=== PATIENT | male | born 1950 | race Caucasian/White ===

== ENCOUNTER → 2019-06-14 | Outpatient (CLI) | payer MEDICARE, OTHER ==
--- NOTE | 2019-06-17 10:08 | PE ---
Nuclear medicine PET/CT HISTORY: Esophageal carcinoma, subsequent Patient received 11.6 mCi F-18 FDG intravenously in delayed scanning was performed from skull base to mid thighs. Localization and attenuation correction CT scan was performed. No comparisons Chest and neck: There is no cervical or supraclavicular adenopathy. No mediastinal, axillary, hilar a denopathy. There is a hiatal hernia present, partial intrathoracic stomach. Midthoracic esophageal le carolyn shows a focus of hypermetabolic uptake, SUV is 3.9, small focus of soft tissue present at this le carolyn posteriorly to the right of midline in the esophagus. There is no pleural effusion. No additional hypermetabolic uptake. No evident lung mass. ABDOMEN: Exophytic focus of soft tissue in the upper pole the left kidney measures 2.3 cm but does no t show simple cystic appearance. Questionable prominence of the right renal gland may be due to in pl ane imaging. Low dense focus present at both the lower pole the left and right kidney show photopenic and likely represent cysts. No evident liver mass, liver shows attenuation likely due to hepatic neel atosis, gallbladder is normal. No adenopathy. Diverticular changes associated:. No ascites. Prostate shows associated calcification, no pelvic adenopathy or free fluid. Osseous structures are showing no hypermetabolic uptake. Degenerative disc changes are noted, facet a rthropathy especially at the lower lumbar spine. IMPRESSION: Soft tissue mass in the mid dressing esophagus as described with associated hypermetaboli c uptake. Diverticulosis, hiatal hernia as described.
== END | disposition home or self-care (01) ==
LOC: RADPETMAIN 10:24
PROVIDERS: ATTEND Thoracic Surgery (Cardiothoracic Vascular Surgery)
DX: C15.8 Malignant neoplasm of overlapping sites of esophagus (principal); K57.90 Diverticulosis of intestine, part unspecified, without perforation or abscess without bleeding; K44.9 Diaphragmatic hernia without obstruction or gangrene
CPT/HCPCS: 78815; A9552